=== PATIENT | male | born 1985 | race Caucasian/White ===

== ENCOUNTER → 2024-08-08 | Emergency (ER) | payer OTHER ==
[~2024-08-08] VITALS: Ht 187.9 cm; Wt 90.7 kg
[~2024-08-08] MED LIST: BUPRENORPHINE HY8 MG SL; CYCLOBENZAPRINE5 M3 PO; Ketorolac Tromethamine 30 MG/ML VIAL IM ONE; PREDNISONE50 MG PO; methylPREDNISolone sod succ 125 MG VIAL IM ONE
== END ==
LOC: ED 12:37
DX: S39.012A Strain of muscle, fascia and tendon of lower back, initial encounter (principal); M25.552 Pain in left hip; Z90.49 Acquired absence of other specified parts of digestive tract; Z88.0 Allergy status to penicillin; Z88.1 Allergy status to other antibiotic agents; Z87.891 Personal history of nicotine dependence; V43.52XA Car driver injured in collision with other type car in traffic accident, initial encounter; Y93.89 Activity, other specified; Y92.410 Unspecified street and highway as the place of occurrence of the external cause; Y99.8 Other external cause status

== ENCOUNTER → 2025-08-06 | Emergency (ER) | payer OTHER ==
[~2025-08-06] VITALS: Ht 185.4 cm; Wt 99.8 kg
[~2025-08-06] MED LIST changes: +ARIPIPRAZOLE10 MG PO; +FLUOXETINE HYDR20 M1 PO; +IBU800 M1 PO; +KLONOPIN1 M1 PO; -Ketorolac Tromethamine 30 MG/ML VIAL IM ONE; +MOXIFLOXACIN H400 M1 PO; -methylPREDNISolone sod succ 125 MG VIAL IM ONE
== END ==
LOC: ED 08:23
DX: K13.0 Diseases of lips (principal); K04.7 Periapical abscess without sinus; Z88.0 Allergy status to penicillin; Z88.1 Allergy status to other antibiotic agents; Z79.899 Other long term (current) drug therapy

== ENCOUNTER 2025-08-10 10:44 | Emergency (ER) | payer OTHER ==
[~2025-08-10] VITALS: Ht 190.5 cm; Wt 99.8 kg
[2025-08-10] MEDS ORDERED: SUBLOCADE100 MG/0.5 SQ (10:53)
[2025-08-10] MEDS ORDERED: CEPHALEXIN500 M1 PO (11:15)
[2025-08-10] MEDS ORDERED: VIBRAMYCIN100 MG PO (11:15)
== END 2025-08-10 11:18 | disposition home or self-care (01) ==
LOC: ED 10:44
DX: L02.01 Cutaneous abscess of face (principal); L02.412 Cutaneous abscess of left axilla; L02.415 Cutaneous abscess of right lower limb; F41.9 Anxiety disorder, unspecified; Z90.49 Acquired absence of other specified parts of digestive tract; Z88.0 Allergy status to penicillin; Z88.1 Allergy status to other antibiotic agents